=== PATIENT | female | born 1930 | race Caucasian/White ===

== ENCOUNTER 2020-02-18 14:36 | Outpatient (CLI) | payer MEDICARE, OTHER ==
--- NOTE | 2020-02-18 15:31 | BD ---
EXAM: DEXA bone density examination HISTORY: 89-year-old postmenopausal female for screening COMPARISON: None FINDINGS: L1--bone mineral density 0.671 g/sq cm; T score -2.9 L2--bone mineral density 0.693 g/sq cm; T score -3.0 L3--bone mineral density 0.796 g/sq cm; T score -2.6 L4--bone mineral density 0.745 g/sq cm; T score -2.9 Total L1-L4--bone mineral density 0.725 g/sq cm; T score -2.9 Left femoral neck--bone mineral density0.477; T score -3.4 Total proximal left femur--bone mineral density 0.551; T score -3.2 Right femoral neck--bone mineral density0.568; T score -2.5 Total proximal right femur--bone mineral density 0.627; T score -2.6 IMPRESSION: Osteoporosis. This patient has a 10 year WHO fracture risk of a major osteoporotic fractu re of 31% and of a hip fracture of 12%.
--- NOTE | 2020-02-18 15:35 | RAD ---
Exam: XR Knee Lt 2 View HISTORY: Unilateral primary osteoarthritis left knee COMPARISON: None FINDINGS: There is tricompartment osteophytosis. There is narrowing of the lateral joint compartment with evide nce of subchondral sclerosis. There are calcifications overlying the medial joint compartment suggesting chondrocalcinosis. No fracture or dislocation is identified. IMPRESSION: Osteoarthritis and chondrocalcinosis without evidence of an acute osseous abnormality left knee.
--- NOTE | 2020-02-18 15:40 | RAD ---
XR Sacroiliac Joints >=3 View History: Sacroiliitis Comparison: None. Findings: Advanced degenerative disc space disease at L5/S1. SI joints are grossly normal for age wit h small osteophytes and low-grade narrowing. Visualized obturator rings are intact. Mild vascular calcifications. Small bilateral acetabular osteo phytes. No dilated loops of bowel within the pelvis. Impression: Moderate degenerative change lumbosacral junction with age-appropriate low-grade degenera tive disease of the SI joints.
== END 2020-02-18 14:37 | disposition home or self-care (01) ==
LOC: BICMAMMO 14:36
PROVIDERS: ATTEND Internal Medicine Rheumatology
DX: M17.12 Unilateral primary osteoarthritis, left knee (principal); M81.0 Age-related osteoporosis without current pathological fracture; M46.1 Sacroiliitis, not elsewhere classified; M47.817 Spondylosis without myelopathy or radiculopathy, lumbosacral region; M11.262 Other chondrocalcinosis, left knee
CPT/HCPCS: 72202; 77080

== ENCOUNTER 2020-06-23 15:28 | Outpatient (CLI) | payer MEDICARE, OTHER | END 2020-06-23 15:29 | disposition home or self-care (01) | LOC: BICRAD 15:28 | PROVIDERS: ATTEND Internal Medicine Rheumatology | DX: M25.552 Pain in left hip (principal) ==

== ENCOUNTER 2021-09-10 10:27 | Outpatient (CLI) | payer MEDICARE, OTHER | END 2021-09-10 10:28 | disposition home or self-care (01) | LOC: BICMAMMO 10:27 | PROVIDERS: ATTEND Internal Medicine Rheumatology | DX: M81.0 Age-related osteoporosis without current pathological fracture (principal) | CPT/HCPCS: 77080 ==

== ENCOUNTER 2021-12-17 13:26 | Outpatient (CLI) | payer MEDICARE, OTHER | END 2021-12-17 13:27 | disposition home or self-care (01) | LOC: ULT 13:26 | PROVIDERS: ATTEND Family Medicine | DX: N18.31 Chronic kidney disease, stage 3a (principal); R10.2 Pelvic and perineal pain | CPT/HCPCS: 76770; 76857 ==